=== PATIENT | male | born 2000 ===

== ENCOUNTER → 2023-07-10 | Outpatient (CLI) | payer OTHER ==
[2023-07-13 08:24] LABS: HIV 1,2 COMBO ANTIGEN/ANTIBODY Negative (Negative)
[2023-07-13 09:45] LABS: HEPATITIS B SURFACE ANTIGEN Negative (Negative)
[2023-07-13 10:38] LABS: HEPATITIS C AB CIA INTERP Negative (Negative); HEPATITIS C ANTIBODY CIA INDEX 0.18 IV
[2023-07-14 06:17] LABS: APTIMA MEDIA TYPE Urine; C. TRACHOMATIS BY TMA Negative (Negative); N. GONORRHOEAE BY TMA Negative (Negative); SPECIMEN SOURCE Urine
== END | disposition home or self-care (01) ==
LOC: LAB 18:44 → LAB SHORT 18:44
PROVIDERS: Registered Nurse Community Health
DX: Z11.3 Encounter for screening for infections with a predominantly sexual mode of transmission (principal); Z20.2 Contact with and (suspected) exposure to infections with a predominantly sexual mode of transmission
CPT/HCPCS: 86592; 86803; 87340; 87389; 87491; 87591